=== PATIENT | female | born 1995 | race African-American/Black ===

== ENCOUNTER 2020-07-11 12:55 | Emergency (ER) | payer SELFPAY ==
[~2020-07-11] VITALS: Ht 170.2 cm; Wt 111.1 kg
[2020-07-11 18:20] VITALS: BP 136/80
--- NOTE | 2020-07-11 19:05 | PHYS DOC ---
Past Medical History Past Medical History: No Pertinent History Past Surgical History: No Surgical History Smoking Status: Never Smoker Alcohol Use: None General Adult EDM: Chief Complaint: VAGINAL PROBLEM HPI: HPI: Patient is a 24 year old female who presents to the ED today to be evaluated for swelling on the left labia that she noted a couple days ago. Patient states she was seen at [facility] yesterday and was treated for pelvic inflammatory disease. She was given prescription for doxycycline and Flagyl which she states she did not fill because it was $36 from the doxycycline and $15 for the Flagyl at [facility]. Review of Systems: Review of Systems: Constitutional: Denies fever or chills. [] GI: Denies abdominal pain, nausea, vomiting, bloody stools or diarrhea. [] : Denies dysuria. [] Reports left labial lesion Musculoskeletal: Denies back pain or joint pain. [] Integument: Denies rash. [] Neurologic: Denies headache, focal weakness or sensory changes. [] Psychiatric: Denies depression or anxiety. [] Heart Score: Risk Factors: Risk Factors: DM, Current or recent (<one month) smoker, HTN, HLP, family history of CAD, obesity. Risk Scores: Score 0 - 3: 2.5% MACE over next 6 weeks - Discharge Home Score 4 - 6: 20.3% MACE over next 6 weeks - Admit for Clinical Observation Score 7 - 10: 72.7% MACE over next 6 weeks - Early Invasive Strategies Current Medications: Current Medications Medications (Trade) Dose Ordered Sig/[facility] Start Time Stop Time Status Last Admin Dose Admin Acetaminophen/ Hydrocodone Bitart (Lortab 5/325) 1 tab 1X ONCE 07/11/20 18:45 07/11/20 18:46 UNV Doxycycline Hyclate (Vibra-Tab) 100 mg 1X ONCE 07/11/20 18:45 07/11/20 18:46 UNV Metronidazole (Flagyl) 500 mg 1X ONCE 07/11/20 18:45 07/11/20 18:46 UNV Allergies: Allergies: Allergies Coded Allergies Type Severity Reaction Last Updated Verified No Known Drug Allergies 07/11/20 No Physical Exam: PE: Constitutional: Well developed, well nourished, no acute distress, non-toxic appearance. [] Abdomen: Bowel sounds normal, soft, no tenderness, no masses, no pulsatile masses. [] Pelvic exam was difficult. Patient is restless cannot keep her legs open for good visualization of this lesion in her left labia. It appears to be a Bartholin cyst on the left labia majora Skin: Warm, dry, no erythema, no rash. [] Back: No tenderness, no CVA tenderness. [] Extremities: No tenderness, no cyanosis, no clubbing, ROM intact, no edema. [] Neurologic: Alert and oriented X 3, normal motor function, normal sensory function, no focal deficits noted. [] Psychologic: Affect normal, judgement normal, mood normal. [] Current Patient Data: Vital Signs: Vital Signs Date Time Temp Pulse Resp B/P (MAP) Pulse Ox O2 Delivery O2 Flow Rate FiO2 07/11/20 15:10 98.2 16 135/87 (103) 100 Room Air 98.2 EKG: EKG: [] Radiology/Procedures: Radiology/Procedures: [] Course & Med Decision Making: Course & Med Decision Making Pertinent Labs and Imaging studies reviewed. (See chart for details) This is a 24-year-old female patient presenting to the ED today to be evaluated for left lesion, exam difficult, patient will not keep her legs wide open for good exam. She was seen at [facility] yesterday and treated for pelvic inflammatory disease. She has a prescription for doxycycline and Flagyl which she states she could not fill because the hughes at [facility] was high. Recommended she goes to [facility] to fill the rx. Provided instructions to follow-up with [facility]. Recommended warm compresses to her left labia. Provided return precautions and discharged in stable condition. Ольга Disclaimer: Ольга Disclaimer: This electronic medical record was generated, in whole or in part, using a voice recognition dictation system. Departure Departure Impression: Primary Impression: Bartholin cyst Disposition: 01 DC HOME SELF CARE/HOMELESS Condition: STABLE Referrals: NO PCP (PCP) JEFRY FARFAN Jr, MD call his office tomorrow and follow up Patient Instructions: Bartholin's Cyst or Abscess Additional Instructions: You have a Bartholin cyst in the left labia. Apply warm compresses to this region. Contact the provided [facility] tomorrow morning and set up a follow-up appointment. Please take the prescription you got from to [facility] to get it filled. Scripts Tramadol Hcl (TRAMADOL HCL) 50 Mg Tablet 50 MG PO Q6HRS PRN for PAIN, #20 TAB Prov: KENTON SEGOVIA APRN 07/11/20 KENTON SEGOVIA APRN Jul 11, 2020 19:05
[2020-07-11] MEDS ORDERED: TRAM50TA PO (19:11)
[2020-07-11] MEDS ORDERED: DOXYCYCLINE HYCLATE 100 MG TABLET PO ONE (19:30)
[2020-07-11] MEDS ORDERED: metroNIDAZOLE 500 MG TABLET PO ONE (19:30)
[2020-07-11] MEDS ORDERED: HYDROcodone/APAP 5/325MG 1 TAB TABLET PO ONE (19:30)
== END 2020-07-11 19:30 | disposition home or self-care (01) ==
LOC: ER 12:55
DX: N75.0 Cyst of Bartholin's gland (principal)
CPT/HCPCS: 99284

== ENCOUNTER 2020-08-19 20:54 | Emergency (ER) | payer SELFPAY ==
[~2020-08-19 20:54] MED LIST: TRAM50TA PO
== END 2020-08-19 21:58 | disposition left against medical advice (07) ==
LOC: ER 20:54
DX: T14.90XA Injury, unspecified, initial encounter (principal); Y08.89XA Assault by other specified means, initial encounter; Z53.21 Procedure and treatment not carried out due to patient leaving prior to being seen by health care provider; Y93.89 Activity, other specified; Y92.89 Other specified places as the place of occurrence of the external cause; Y99.8 Other external cause status

== ENCOUNTER 2021-02-02 06:35 | Emergency (ER) | payer SELFPAY ==
[~2021-02-02] VITALS: Ht 170.2 cm; Wt 104.9 kg
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
[2021-02-02 08:39] VITALS: BP 134/88
== END 2021-02-02 09:02 | disposition home or self-care (01) ==
LOC: ER 06:35
DX: S00.81XA Abrasion of other part of head, initial encounter (principal); R68.84 Jaw pain; M25.512 Pain in left shoulder; Y08.89XA Assault by other specified means, initial encounter; Y93.9 Activity, unspecified; Y92.89 Other specified places as the place of occurrence of the external cause; Y99.8 Other external cause status
CPT/HCPCS: 70450; 70486; 71046; 73010; 73090; 81025; 99285

== ENCOUNTER 2021-11-07 23:12 | Emergency (ER) | payer SELFPAY ==
[~2021-11-07] VITALS: Ht 170.2 cm; Wt 98.0 kg
[2021-11-08] MEDS ORDERED: BACITRACIN TOPICAL OINT PACKET. TP ONE
[2021-11-08] MEDS ORDERED: fentaNYL PF VIAL 100 MCG/2 ML VIAL IVP ONE
[2021-11-08] MEDS ORDERED: DIPHTH,PERTUSS(ACELL),TET TOX 0.5 ML DISP.SYRIN. VAX IM ONE
[2021-11-08] MEDS ORDERED: IOHEXOL 300 MG/ML 100ML VIAL. IV ONE (00:15)
[2021-11-08] MEDS ORDERED: CONTRAST GIVEN. MC PRN (00:15)
[2021-11-08 01:12] LABS: U PREG PATIENT NEGATIVE (NEG)
[2021-11-08 01:19] LABS: HEMATOCRIT 42.2 % (36.0-47.0); HEMOGLOBIN 13.8 g/dL (12.0-15.5); RED BLOOD COUNT 5.03 x10^6/uL (3.50-5.40); RED CELL DISTRIBUTION WIDTH 13.8 % (11.5-14.5); WHITE BLOOD COUNT 15.7 x10^3/uL (4.0-11.0)
[2021-11-08] MEDS ORDERED: ONDANSETRON PF 4 MG/2 ML VIAL. ONE (01:26)
[2021-11-08 01:30] LABS: CALCIUM 9.1 mg/dL (8.5-10.1); GFR 82.4; POTASSIUM 3.6 mmol/L (3.5-5.1)
[2021-11-08] MEDS ORDERED: ONDANSETRON PF 4 MG/2 ML VIAL. IVP ONE (01:30)
[2021-11-08 01:44] LABS: ALBUMIN 4.3 g/dL (3.4-5.0); TOTAL BILIRUBIN 0.5 mg/dL (0.2-1.0); TOTAL PROTEIN 8.7 g/dL (6.4-8.2)
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
--- NOTE | 2021-11-08 02:36 | RAD ---
PQRS Compliance Statement: One or more of the following individualized dose reduction techniques were utilized for this examinat ion: 1. Automated exposure control 2. Adjustment of the mA and/or kV according to patient size 3. Use of iterative reconstruction technique CT CHEST+ABD+PELVIS W 11/07/2021 1:49 AM INDICATION: Left-sided chest wall and abdominal pain COMPARISON: None available TECHNIQUE: Multiple axial CT images of the chest, abdomen and pelvis were obtained after the intraven ous administration of 75 mL Omnipaque 300. Coronal and sagittal reformats are provided. FINDINGS: Thyroid gland is normal in appearance. There are no pathologically enlarged axillary, mediastinal or hilar lymph nodes. Heart size is within normal limits. Thoracic aorta is normal in course and caliber. There is no significant pericardial e ffusion. Thoracic esophagus is normal in appearance. Anterior chest wall appears intact. No suspicious solid noncalcified pulmonary nodule. There are no pleural effusions, pulmonary vascular congestion or pneumothorax. Lungs are clear without focal airspace consolidation. Central airways ar e clear. No suspicious hepatic masses are identified. Liver is homogeneous in enhancement. Spleen, bilateral a drenal glands, and pancreas are normal in appearance. Gallbladder is present without adjacent inflamm atory changes. The abdominal aorta is normal in course and caliber. There are no pathologically enlar ged lymph nodes in the abdomen and pelvis. There is no abdominal free fluid. There is no free intrape ritoneal air. The kidneys enhance symmetrically. There is no suspicious renal mass. There is no hydro nephrosis. There are no suspected calculi within the kidneys, ureters or urinary bladder. Small and l arge bowel are normal in caliber. There is no evidence for bowel obstruction. There are no pericoloni c inflammatory changes. A normal, nondilated appendix is visualized without adjacent inflammatory sebastian nges. Urinary bladder is within normal limits given degree of distention. Uterus and adnexa are shoaib l by CT. Clavicles and scapula are intact. Sternum is intact. No acutely displaced rib fracture. Thoracic spin e is intact. Alignment of the lumbar spine is normal. No acute pelvic fracture. No acute compression fracture. IMPRESSION: No acute abnormality involving the chest, abdomen and pelvis as detailed above. Electronically signed by: Ofelia Herrmann MD (11/08/2021 2:33 AM) [facility]
[2021-11-08] MEDS ORDERED: LIDOCAINE 1%/EPI 1:100,000 20 ML VIAL. INJ ONE (03:15)
[2021-11-08 03:56] VITALS: BP 106/94
[2021-11-08] MEDS ORDERED: IBUP-1007 PO (03:59)
[2021-11-08] MEDS ORDERED: IBUPROFEN 200 MG TABLET. PO ONE (04:00)
== END 2021-11-08 04:30 | disposition home or self-care (01) ==
LOC: EEVIPCON 23:12 → ER 23:12
DX: S01.81XA Laceration without foreign body of other part of head, initial encounter (principal); M54.2 Cervicalgia; R51.9 Headache, unspecified; Z87.891 Personal history of nicotine dependence; F43.10 Post-traumatic stress disorder, unspecified; Y08.89XA Assault by other specified means, initial encounter; Y93.89 Activity, other specified; Y92.89 Other specified places as the place of occurrence of the external cause; Y99.8 Other external cause status
CPT/HCPCS: 12013; 36415; 70450; 70486; 71260; 72125; 74177; 80053; 81025; 85027; 96374; 96375; 99285; J2060; J2405; J3010; J3490